=== PATIENT | female | born 1970 ===

== ENCOUNTER 2017-10-04 15:43 | Emergency (ER) | payer OTHER ==
[2017-10-04] MEDS ORDERED: Acetaminophen 500 MG TAB ONE (16:10)
[2017-10-04] MEDS ORDERED: Ibuprofen 800 MG TAB ONE (16:10)
== END 2017-10-04 16:17 | disposition home or self-care (01) ==
LOC: NAV ERS 15:43
DX: B34.9 Viral infection, unspecified (principal); R05 Cough
CPT/HCPCS: 99283